=== PATIENT | male | born 1970 | race Caucasian/White ===

== ENCOUNTER 2025-03-23 09:28 | Emergency (ER) | payer MEDICARE, SELFPAY ==
[2025-03-23 09:43] VITALS: BP 126/86; PULSE 99; RESP 19; TEMP 36.3; O2SAT 100; BMI 32.1
--- NOTE | 2025-03-23 09:52 | EDNOTE_ITS ---
Lower Extremity Injury RME/HPI General Chief Complaint: Extremity Injury, Lower Stated Complaint: SWELLING TO LEFT ANKLE, NO TRAUMA Time Seen by Provider: 03/23/25 10:09 Arrival date/time: 03/23/25 09:28 RME / HPI RME / HPI Narrative: DR. ROSE MAIN ED EVALUATION: 54-year-old male with a history of rheumatoid arthritis on prednisone presents to the Emergency Department for evaluation of left lower leg and ankle pain with swelling for one week, worsening today. The patient denies trauma or recent travel. Reports no chest pain, cough, shortness of breath, fever, or chills. Denies nausea, vomiting, or diarrhea. States Tylenol provides minimal relief. Notes his eyes burn and his tears feel ?very salty.? Smokes approximately 3?4 cigarettes per day. Related Data Previous Rx's ?Medication ?Instructions ?Recorded apixaban 5 mg (74 tabs) tablets in 5 mg PO BID #74 tab s 03/23/25 a dose pack ([employer] DVT-PE Treat 30D Start) Allergies Allergy/AdvReac Type Severity Reaction Status Date / Time No Known Allergies Allergy Verified 03/23/25 09:32 Review of Systems Review of Systems Systems Reviewed: All systems reviewed, normal except as documented Past Medical History Past Medical History MUSCULOSKELETAL: Positive Rheumatoid Arthritis Social History SMOKING STATUS: Current every day smoker SUBSTANCE USE: does not use ALCOHOL: Never ED Exam Narrative Physical exam: GENERAL APPEARANCE: alert and oriented x 4, well-developed, well-nourished, no acute distress VITALS: All vitals were reviewed and the pulse ox is 100% on room air, which is normal according to my interpretation. HEENT: Normocephalic, atraumatic; pupils equal, round, reactive to light; EOMI; mucous membranes pink, moist; oropharynx clear NECK: Supple LUNGS: CTABL; no wheezes, no rales, no rhonchi HEART: Regular rate, regular rhythm; normal S1, S2; no murmurs ABDOMEN: non distended; normal BS; soft, no tenderness, no guarding, no rebound; no masses, no organomegaly, no hernia BACK: no CVA tenderness EXTREMITIES: Left lower leg and ankle with 3+ non-pitting edema, no erythema; distal pulses palpable and equal bilaterally NEUROLOGIC: awake; alert and oriented x4; cranial nerves II-XII grossly intact; no focal sensory or motor deficits PSYCHIATRIC: appropriate mood and affect SKIN: warm, dry, normal color; no rashes Course Quality Measures none Orders Category Date Time Status Spooling Operator NOW Care 03/23/25 10:09 Completed EKG (ED ONLY) *Do not use* NOW Care 03/23/25 10:09 Completed EKG (ED Only) Stat Exams 03/23/25 10:09 Draft US venous doppler LE LT Stat Exams 03/23/25 10:09 Completed XR chest 1V portable Stat Exams 03/23/25 10:09 Completed B-Type Natriuretic Peptide Stat Lab 03/23/25 11:02 Completed CBC Stat Lab 03/23/25 11:02 Completed Comprehensive Metabolic Panel Stat Lab 03/23/25 11:02 Completed Lipase Stat Lab 03/23/25 11:02 Completed Magnesium Stat Lab 03/23/25 11:02 Completed Partial Thromboplastin Time Stat Lab 03/23/25 11:02 Completed Prothrombin Time with INR Stat Lab 03/23/25 11:02 Completed Troponin I Stat Lab 03/23/25 11:02 Completed HYDROcodone*/APAP 5/325 [[place] 5/325] Med 03/23/25 10:09 Discontinued 1 tab PO X1 ONE Vital Signs Vital signs: Vital Signs Temperature 97.4 F 03/23/25 09:43 Pulse Rate 99 03/23/25 09:43 Respiratory Rate 19 03/23/25 09:43 Blood Pressure 126/86 H 03/23/25 09:43 Pulse Oximetry (%) 100 03/23/25 09:43 Oxygen Delivery Method Room Air 03/23/25 09:43 Extremity Injury, Lower MDM Narrative MDM Narrative:: I, Ale Tirado am scribing for and in the presence of Dr. Rose. Patient data External records reviewed:: None (no previous visits) Clinical information provided by:: patient Social determinants that could affect healthcare access:: none Patient has the following chronic illnesses:: rheumatoid arthritis on prednisone How is presenting disease/condition affected by chronic disease/condition?: exacerbated by Evaluation data The following diagnostics were reviewed and interpreted by me:: lab results, radiology exam(s) and EKG tracing(s) (My interpretation: EKG performed at 1018 hours, sinus rhythm, rate 92, no acute ischemic changes) Lab and/or radiology exams considered but not ordered:: none Interpretation Summary: Procedure(s): US venous doppler LE Accession Number(s): [id number] cc: Gilbert Wiley MD; Florina Rose MD~ Examination: Duplex scan of the lower extremity, unilateral left Date and time of exam: March 23, 2025, 1020 hours INDICATIONS: Left lower leg and foot swelling and pain beginning 1 week ago Technique: Duplex scan of the extremity veins using B-mode/grayscale imaging and Doppler spectral analysis and color flow Attention is directed to internal echogenicity, compression and augmentation involving these veins, color flow assessment, spectral analysis Findings: Positive for nonocclusive thrombus in the left popliteal vein Remaining deep venous system is open IMPRESSION: Positive for nonocclusive thrombus in the left popliteal vein Dictated By: Gilbert Wiley MD Procedure(s): XR chest 1V portable Accession Number(s): [id number] cc: Gilbert Wiley MD; Florina Rose MD~ EXAMINATION: AP chest single view TECHNIQUE: AP portable semiupright chest single view Date and time: March 23, 2025, 1106 hours INDICATIONS: Chest pain and body edema at today FINDINGS: Mild prominence left ventricle Mild vascular congestion No riley pulmonary edema, no pneumonia IMPRESSION: Mild prominence left ventricle Mild vascular congestion. Dictated By: Gilbert Wiley MD Medications / Prescriptions Medications or Prescriptions considered but not ordered:: none Medication administrations:: Medication Administration History Discontinued Medications Hydrocodone Bitart/Acetaminophen (Hydrocodone/Apap 5/325 Tablet) 1 tab PO X1 ONE Stop: 03/23/25 10:10 Last Admin: 03/23/25 10:55 Dose: 1 tab Documented By: MAYELA see above Consultations Consultation(s) initiated? (list below): No Diagnosis Extremity Injury, Lower Differential Diagnosis: other (DVT, rheumatoid arthritis flare, and venous insufficiency.) Most likely diagnosis given after review of the tests above:: Non-occlusive thrombus Acute DVT of left popliteal vein Cigarette smoker Admission Indicated Admission indicated?: not indicated Admission Request Was there a request for admission?: No Disposition Plan Disposition Plan: Discharge Discharge Attestation Discharge Attestation: The patient and all family members were given an opportunity to ask questions and understood the discharge instructions. Discharge instructions specifically effects, indications for sooner follow up or return to the emergency department, and the expected course of current diagnosis. Patient condition: Stable Discharge Plan Plan Patient Disposition: HOME (Self Care) Prescriptions/Referrals Prescriptions/Med Rec: Than[facility] DVT-PE Treat 30D Start 5 mg (74 tabs) tablets,dose pack 5 mg PO BID Qty: 74 0RF Referrals: No Primary/Family,Physician [Primary Care Provider] - In 1 week Problem List Clinical Impression: Non-occlusive thrombus, Acute deep vein thrombosis of left popliteal vein, Cigarette smoker Patient/Caregiver Discharge Instructions Education Materials: Venous Thromboembolism, ED How to Quit Smoking Print Language: [place] Stand Alone Forms: [employer] Award Info., Patient Portal Info Letter
--- NOTE | 2025-03-23 10:09 | XR_ITS ---
EXAMINATION: AP chest single view TECHNIQUE: AP portable semiupright chest single view Date and time: March 23, 2025, 1106 hours INDICATIONS: Chest pain and body edema at today FINDINGS: Mild prominence left ventricle Mild vascular congestion No riley pulmonary edema, no pneumonia IMPRESSION: Mild prominence left ventricle Mild vascular congestion.
--- NOTE | 2025-03-23 10:09 | XR_ITS ---
Examination: Duplex scan of the lower extremity, unilateral left Date and time of exam: March 23, 2025, 1020 hours INDICATIONS: Left lower leg and foot swelling and pain beginning 1 week ago Technique: Duplex scan of the extremity veins using B-mode/grayscale imaging and Doppler spectral analysis and color flow Attention is directed to internal echogenicity, compression and augmentation involving these veins, color flow assessment, spectral analysis Findings: Positive for nonocclusive thrombus in the left popliteal vein Remaining deep venous system is open IMPRESSION: Positive for nonocclusive thrombus in the left popliteal vein
--- NOTE | 2025-03-23 10:09 | EKG_ITS ---
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
[2025-03-23] MEDS: HYDROcodone/APAP 5/325 TABLET 1 TAB PO (10:55)
[2025-03-23 11:13] LABS: Basophils # (Auto) 0.0 Thou/mm3 (0.0-0.2); Basophils % (Auto) 1 % (0-2.5); Eosinophils # (Auto) 0.2 Thou/mm3 (0.0-0.5); Eosinophils % (Auto) 4 % (0-10); Hematocrit 38.6 % (41.0-53.0); Hemoglobin 13.1 g/dL (13.5-16.0); Immature Granulocytes Auto 0.01 Thou/mm3 (0.00-0.00); Lymphocytes # (Auto) 1.2 Thou/mm3 (1.0-4.8); Lymphocytes % (Auto) 21 % (10-50); Mean Corpuscular HGB Conc 33.9 g/dl (31.0-37.0); Mean Corpuscular Hemoglobin 29.2 pg (25.0-35.0); Mean Corpuscular Volume 86 fL (80-100); Monocytes # (Auto) 0.7 Thou/mm3 (0.0-0.8); Monocytes % (Auto) 13 % (0-12); Neutrophils # (Auto) 3.5 Thou/mm3 (1.8-7.7); Neutrophils % (Auto) 61 % (37-80); Nucleated Red Blood Cell # 0.00 Thou/mm3 (0.00-0.00); Nucleated Red Blood Cell % 0 /100 WBC (0); Platelet Count 149 Thou/mm3 (140-440); RDW Standard Deviation 42.4 fL (35.1-43.9); Red Blood Count 4.48 Miln/mm3 (4.50-5.90); White Blood Count 5.8 Thou/mm3 (3.8-10.6)
[2025-03-23 11:35] LABS: INR 1.1 (0.9-1.3); Partial Thromboplastin Time 26.9 Seconds (22.0-36.0); Prothrombin Time 11.2 Seconds (9.0-12.2)
[2025-03-23 11:47] LABS: B-Type Natriuretic Peptide < 20 pg/mL (0-100)
[2025-03-23 11:57] LABS: Alanine Aminotransferase < 7 U/L (10-49); Albumin, Serum 4.0 gm/dL (3.5-5.0); Albumin/Globulin Ratio 1.5 (1.2-2.2); Alkaline Phosphatase 104 U/L (46-116); Anion Gap 8 (7-16); Aspartate Amino Transferase 13 U/L (0-34); BUN/Creatinine Ratio 11 Ratio (12-20); Bilirubin,Total 0.5 mg/dL (0.3-1.2); Blood Urea Nitrogen 12 mg/dL (9-23); Calcium 9.6 mg/dL (8.3-10.6); Calcium (Corrected) 9.6 mg/dL (8.5-10.1); Carbon Dioxide 27.7 mMol/L (20.0-31.0); Chloride 102 mMol/L (98-107); Creatinine (Component) 1.1 mg/dL (0.6-1.3); Estimated Creatinine Clearance 100.4 mL/min (>60); Globulin 2.7 gm/dL (2.3-3.5); Glucose 136 mg/dL (74-106); Lipase 53 U/L (12-53); Magnesium 2.0 mg/dL (1.6-2.6); Osmolality,Calculated 277 (275-295); Potassium 4.2 mMol/L (3.4-5.1); Sodium 138 mMol/L (136-145); Total Protein 6.7 gm/dL (5.7-8.2); Troponin I < 0.002 ng/mL (0.0-0.045); eGFR > 60 See Note
[2025-03-23 12:09] VITALS: BP 128/83; PULSE 84; RESP 17; TEMP 36.6; O2SAT 98
--- NOTE | 2025-03-23 12:44 | PC.CC ---
Katharine RENTERIA was consulted by MEERA Walters for Community Resource for Clinics for the patient to find a primary care provider. Katharine RENTERIA provided patient with [facility] Community Resource Guide that included multiple clinic information for patient to find a primary provider.
--- NOTE | 2025-03-26 17:49 | PD.EDADDENDU ---
Emergency Room Addendum Addendum Narrative: Patient called regarding werner of Eliquis. Cancelled and sent prescription for warfarin. Advised patient that he will need close monitoring with this medication. Provided information for [facility] for follow up.
== END 2025-03-23 12:38 | disposition home or self-care (01) ==
PROVIDERS: Emergency Provider Emergency Medicine
DX: I82.432 Acute embolism and thrombosis of left popliteal vein (principal); F17.210 Nicotine dependence, cigarettes, uncomplicated
CPT/HCPCS: 36415; 71045; 80053; 83690; 83735; 83880; 84484; 85025; 85610; 85730; 93005; 93971; 99283; A9270